=== PATIENT | male | born 1965 | race Caucasian/White ===

== ENCOUNTER 2021-08-06 16:59 | Outpatient (REF) | payer BC, SELFPAY ==
[2021-08-06 20:23] LABS: CREATININE 1.2 mg/dL (0.70-1.30)
[2021-08-06 20:29] LABS: ALT 34 U/L (16-63); AST 20 U/L (15-37); Albumin 4.2 g/dL (3.4-5.0); Alkaline Phosphatase 72 U/L (46-116); Bilirubin, Direct 0.1 mg/dL (0.0-0.2); Bilirubin, Total 0.4 mg/dL (0.2-1.0); Total Protein 7.2 g/dL (6.4-8.2)
== END 2021-08-06 17:00 | disposition home or self-care (01) ==
LOC: NCHCN 16:59
PROVIDERS: Otolaryngology; PCP Nurse Practitioner Family; Visit Provider Nurse Practitioner Family
DX: I10 Essential (primary) hypertension (principal); F60.5 Obsessive-compulsive personality disorder
CPT/HCPCS: 80076; 82565

== ENCOUNTER 2021-08-11 00:40 | Outpatient (CLI) | payer BC, SELFPAY ==
--- NOTE | 2021-08-11 07:00 | DI.MRI_ITS ---
Exam(s) MR IAC BRAIN WO/W EXAM: MR IAC BRAIN WO/W CLINICAL HISTORY: asyMmetric hearing loss,BILAT TINNITUS,H93.13,H90.3 TECHNIQUE: MR examination of the brain was performed according to the usual protocol with additiona l multiplanar high-resolution pre and post contrast imaging the posterior fossa. Whole brain axial T 1 weighted imaging was also obtained post contrast. COMPARISON: No exams were available for comparison FINDINGS: The ventricular system is normal in appearance. There is no mass lesion or enhancing lesion in the b rain. There are multiple areas of abnormal signal seen in periventricular and subcortical white matter T2 w eighted and FLAIR imaging. Findings are consistent with microvascular ischemic changes. Diffusion-weighted imaging shows no diffusion restriction to suggest cerebral infarction. Susceptibility weighted imaging shows no evidence of intracranial hemorrhage. The orbital and temporal bone structures appear intact. The pituitary appears intact. There is normal flow void in the xdlnlw-[id number]-Hjfqod vasculature. Imaging of the posterior fossa region shows no abnormality of the cerebellum or caleb. The internal a uditory canals and inner and middle ear structures appear normal. There is no mass lesion or enhanci ng lesion. IMPRESSION: Presumed microvascular ischemic changes are noted as described above. Otherwise, negative brain MRI with attention to the posterior fossa structures as described above. No mass lesion or enhancing les ion. RADIATION DOSE DELIVERED: Total DLP
[2021-08-11] MEDS: Gadoterate meglumine 20 ML VIAL 16 ML IVP (10:40)
[2021-08-11] MEDS: Normal Saline Flush 10 ML SYR IVP (10:40)
== END 2021-08-11 01:00 ==
PROVIDERS: PCP Nurse Practitioner Family; Visit Provider Otolaryngology
DX: H90.3 Sensorineural hearing loss, bilateral (principal); H93.13 Tinnitus, bilateral
CPT/HCPCS: 70553

== ENCOUNTER 2021-12-08 12:42 | Outpatient (REF) | payer BC, SELFPAY ==
[2021-12-09 10:28] LABS: HIV-1/2 Ag & Ab Screen Negative (Negative)
[2021-12-09 13:26] LABS: Chlamydia Result Negative (Negative); GC Result Negative (Negative)
== END 2021-12-08 12:43 | disposition home or self-care (01) ==
LOC: NCHCN 12:42
PROVIDERS: PCP Nurse Practitioner Family; Visit Provider Nurse Practitioner Family
DX: Z11.3 Encounter for screening for infections with a predominantly sexual mode of transmission (principal); Z11.4 Encounter for screening for human immunodeficiency virus [HIV]
CPT/HCPCS: 87389; 87491; 87591